=== PATIENT | female | born 1990 | race Caucasian/White ===

== ENCOUNTER → 2022-05-17 14:21 | Outpatient (BNVA) | payer MEDICAID, SELFPAY | PROVIDERS: Visit Provider Nurse Practitioner Family | DX: Z34.90 Encounter for supervision of normal pregnancy, unspecified, unspecified trimester (principal) | CPT/HCPCS: 81025 ==

== ENCOUNTER 2022-05-28 10:46 | Emergency (ER) | payer MEDICAID, SELFPAY ==
[2022-05-28 11:09] VITALS: BP 130/95; PULSE 78; RESP 16; TEMP 36.7; O2SAT 98; BMI 34.3
--- NOTE | 2022-05-28 14:07 | US_ITS ---
WS: [id number] EARLY OBSTETRICAL ULTRASOUND (<14 WEEKS). HISTORY: vag bleeding COMPARISON: None available. Single intrauterine gestational sac is identified. Cardiac activity at 126 BPM. [place]-rump length luis sures 0.9 cm which corresponds to a gestation of 6w6d. Normal-appearing yolk sac and amnion demonstra laura. Moderate subchorionic hemorrhage. Mixed echogenicity subchorionic hemorrhage measures 3.4 x 2.3 x 0.7 cm. Hemorrhage is along the posterior and RIGHT lateral gestational sac. No free fluid. Both ovaries are identified with normal vascularity. Corpus luteal cyst associated with the RIGHT ova ry measures 2.2 x 1.8 x 1.6 cm. US/US OB <=14 wk fetus w transvag IMPRESSION: 1. Single intrauterine gestation of 6 weeks 6 days with an EDC of 01/15/2023. 2. Normal cardiac activity. 3. Moderate-sized subchorionic hemorrhage measures 3.4 x 2.3 x 0.7 cm.
--- NOTE | 2022-05-28 14:19 | W.ED.GENADLT ---
HPI - General Adult General: Chief complaint: Vaginal Bleeding Stated complaint: Bleeding, Time Seen by Provider: 05/28/22 13:59 History of Present Illness: Patient is a 31-year-old female G3, P2 at 8 weeks by LMP presenting to the emergency room for vaginal bleeding for the last 5 days. Patient tells me that on she began having vaginal spotting. However however since Saturday or today, patient has had heavy vaginal bleeding. Patient denies any dysuria, hematuria or polyuria. Patient denies any new vaginal discharge. Patient has no complaints of diarrhea melena hematochezia, chest pain shortness breath palpitation or lightheadedness, fever or chills, cough, runny nose or sore throat. Patient reports mild lower abdominal pain with cramps. Patient denies any pelvic contractions. Onset: 5 days ago Duration:5 days Location:home Severity:moderate Associated symptoms: Deny chest pain, dyspnea, nausea, rash, palpitations or vomiting Review of Systems Const: Denies: fever(s) or chills Eyes: Denies: change in vision ENMT: Denies: mouth pain Card: Denies: chest pain or palpitations Resp: Denies: dyspnea or non-productive cough GI: Reports: abdominal pain (+lower abd pain/cramps); Denies: nausea, vomiting or diarrhea : Reports: other (+vaginal bleeding/spotting, +pelvic cramps); Denies: dysuria Musc: Denies: extremity pain Skin/Breast: Denies: rash or new lesions Neuro: Denies: weakness in extremities Psych: Reports: other (Normal mood) [place]/Lymph: Denies: easy bruising [facility] ED PFSH: Medical History Family History Mother Stroke Cancer Grandmother Hypertension Hyperlipidemia Social History Smoking and tobacco status: never smoked Alcohol intake: never Adopted: No Caregiver/support person: No Lives independently: No Household members: spouse and children Marital status: service: No Current occupational status: unemployed Sexually active: Yes Current gender identity: Female Physical Exam Const: COMMON NORMALS: alert HENMT: COMMON NORMALS: atraumatic HEAD & SCALP: atraumatic MOUTH: moist mucous membranes not abnormal Eye: COMMON NORMALS: EOMs intact bilaterally and conjunctivae normal CONJUNCTIVA: Yes conjunctivae normal Neck/C-Spine: COMMON NORMALS: full ROM and supple Resp: COMMON NORMALS: normal respiratory effort and clear to auscultation bilaterally AUSCULTATION: clear to auscultation bilaterally Cardio: COMMON NORMALS: regular rate RATE: regular rate GI: COMMON NORMALS: Soft to palpation and non-tender PALPATION: Yes Soft to palpation OTHER: No focal TTP. NO guarding rebound, guarding, rigidity. No CVA tenderness to percussion. Neg Alanis/Neg McBurney's point tenderness, no suprabupic tenderness to palpation. : OTHER: Exam supervised by Kati Cardona, External genitalia wnl. No erythema around cervical os, os closed, +mild vaginal discharge, no bleeding. Extremity: COMMON NORMALS: full ROM Neuro: SENSORIUM/ORIENTATION: Yes alert MOTOR EXAM: No Abnormal motor strength present and Other motor observations present (no focal motor deficits) Psych: COMMON NORMALS: speech normal SPEECH: Yes normal speech MOOD & AFFECT: Yes euthymic mood Course Vital Signs: Vital signs: Vital Signs Temperature 98.1 F 05/28/22 11:09 Pulse Rate 78 05/28/22 11:09 Respiratory Rate 16 05/28/22 11:09 Blood Pressure 130/95 05/28/22 11:09 Pulse Oximetry 98 05/28/22 11:09 MDM - General Adult Medical Decision Making 31-year-old female G3, P2 at 8 weeks by LMP presenting to the emergency room for complaints of vaginal bleeding pelvic cramps. On physical exam, patient has no focal abd tenderness palpation. Pelvic exam showed mild physiologica discharge without anyl bleeding. US confirms IUP at 6 weeks and 6 days patient is noted to moderate-sized subchorionic bleed. Hemoglobin 14.2. Do not suspect acute and active vaginal bleeding/hemorrhage. I have given patient follow up with our onsite case manager to be seen by our outpatient OB for threatened miscarriage and vaginal bleeding. Patient aware of a call from our onsite case manager to schedule for appointment(s) and verbalizes understanding of the importance of following up. Rx tylenol PRN pain Disposition: Discharge. Patient counseled regarding diagnostic impression, treatment plan. Patient given ED strict return precautions to return for continuation, worsening, or development of new symptoms. Instructed to f/u w/ PCP regarding symptoms today. Patient verbalized understanding. Lab Data : 05/28/22 14:25 05/28/22 14:25 Radiology Impressions Obstetrics Ultrasound 05/28/22 14:07 IMPRESSION: 1. Single intrauterine gestation of 6 weeks 6 days with an EDC of 01/15/2023. 2. Normal cardiac activity. 3. Moderate-sized subchorionic hemorrhage measures 3.4 x 2.3 x 0.7 cm. Laboratory Results WBC 8.8 10^3/uL (4.0-10.0) 05/28/22 14:25 RBC 4.77 10^6/uL (4.1-5.3) 05/28/22 14:25 Hgb 14.2 g/dL (11.5-15.3) 05/28/22 14:25 Hct 42.8 % (37.0-47.0) 05/28/22 14:25 MCV 89.7 fl (81-99) 05/28/22 14:25 MCH 29.8 pg (28.0-34.0) 05/28/22 14:25 MCHC 33.2 g/dL (30.0-36.0) 05/28/22 14:25 RDW 12.8 % (12.1-15.1) 05/28/22 14:25 Plt Count 256 10^3/cmm (130-400) 05/28/22 14:25 MPV 10.2 fL (7.4-10.4) 05/28/22 14:25 Neut % (Auto) 72.9 % 05/28/22 14:25 Lymph % (Auto) 21.8 % 05/28/22 14:25 [place] % (Auto) 4.8 % 05/28/22 14:25 Eos % (Auto) 0.2 % 05/28/22 14:25 Baso % (Auto) 0.1 % 05/28/22 14:25 Neut # (Auto) 6.37 10^3/uL (1.8-7.7) 05/28/22 14:25 Lymph # (Auto) 1.9 10^3/uL (0.8-4.8) 05/28/22 14:25 [place] # (Auto) 0.4 10^3/uL (0.2-0.9) 05/28/22 14:25 Eos # (Auto) 0.0 10^3/uL (0.0-0.8) 05/28/22 14:25 Baso # (Auto) 0.0 10^3/uL (0.0-0.1) 05/28/22 14:25 Nucleated RBC % (auto) 0 % 05/28/22 14:25 Nucleated RBCs # 0.0 /100WBC 05/28/22 14:25 Blood Type A Positive 05/28/22 14:25 Rho(D) Type Positive 05/28/22 14:25 Imaging Data Other Imaging: Radiologist's impression: [employer] [id number] Ultrasound Report Signed Patient: Antonietta Shaw Unit #: [id number] : 1990 Age/Sex: 31 / F ADM Date: 05/28/22 Loc: ER Room/Bed: Attending Dr: Ordering Provider/Ordering MD: Katherine Kamara MD Date of Service: 05/28/22 Procedure(s): US OB <=14 wk fetus w transvag Accession Number(s): [id number] Report Number: [id number] WS: [id number] ?EARLY OBSTETRICAL ULTRASOUND (<14 WEEKS). HISTORY: vag bleeding COMPARISON: None available. Single intrauterine gestational sac is identified. Cardiac activity at 126 BPM. [place]-rump length measures 0.9 cm which corresponds to a gestation of 6w6d. Normal-appearing yolk sac and amnion demonstrated.? Moderate subchorionic hemorrhage. Mixed echogenicity subchorionic hemorrhage measures 3.4 x 2.3 x 0.7 cm. Hemorrhage is along the posterior and RIGHT lateral gestational sac. No free fluid. Both ovaries are identified with normal vascularity. Corpus luteal cyst associated with the RIGHT ovary measures 2.2 x 1.8 x 1.6 cm. US/US OB <=14 wk fetus w transvag IMPRESSION: ? 1.? Single intrauterine gestation of 6 weeks 6 days with an EDC of 01/15/2023. 2.? Normal cardiac activity. 3.? Moderate-sized subchorionic hemorrhage measures 3.4 x 2.3 x 0.7 cm. ? Dictated By: Karlene Newby DO Signed By: Karlene Newby DO Signed Date/Time: 05/28/22 151 DD/ 1503 Discharge Plan Discharge Condition: Stable Prescriptions: No Action Classic 28 mg iron- 800 mcg tablet 1 tab PO DAILY 90 Days Qty: 90 2RF Coding Level of Care Code ED Motion Study Engineer for Johng Fwd Exam Comprehensive
[2022-05-28 14:42] LABS: Basophils % 0.1 %; Eosinophils % 0.2 %; Hematocrit 42.8 % (37.0-47.0); Hemoglobin 14.2 g/dL (11.5-15.3); Lymphocytes # 1.9 10^3/uL (0.8-4.8); Lymphocytes % 21.8 %; Mean Corpuscular HGB Conc 33.2 g/dL (30.0-36.0); Mean Corpuscular Hemoglobin 29.8 pg (28.0-34.0); Mean Corpuscular Volume 89.7 fl (81-99); Mean Platelet Volume 10.2 fL (7.4-10.4); Monocytes # 0.4 10^3/uL (0.2-0.9); Monocytes % 4.8 %; Neutrophils # 6.37 10^3/uL (1.8-7.7); Neutrophils % 72.9 %; Nucleated Red Blood Cells % 0 %; Platelet Count 256 10^3/cmm (130-400); Red Blood Count 4.77 10^6/uL (4.1-5.3); Red Cell Distribution Width 12.8 % (12.1-15.1); White Blood Count 8.8 10^3/uL (4.0-10.0)
[2022-05-28 15:57] LABS: Alanine Aminotransferase < 5 U/L (0-33); Albumin Level 4.8 g/dL (3.5-5.2); Alkaline Phosphatase 60 IU/L (35-105); Blood Urea Nitrogen 15 mg/dL (6-20); Calcium 10.2 mg/dL (8.5-10.5); Carbon Dioxide 24 mmol/L (22-29); Chloride 97 mmol/L (98-107); Creatinine Clr Calc Pharmacy 152.4422; Globulin 3.3 g/dL (1.3-4.6); Glomerular Filtration Rate 143.9 mL/min (90-130); Glucose 74 mg/dL (65-115); Osmolality Calculated 277 mOsm/kg (285-295); Sodium 134 mmol/L (136-145); Total Bilirubin 0.2 mg/dL (0.15-1.2); Total Protein 8.1 g/dL (6.6-8.7)
[2022-05-28 15:59] LABS: Anion Gap 16.8 (5-19); Aspartate Amino Transferase 15 U/L (0-32); Potassium 3.8 mmol/L (3.5-5.1)
[2022-05-28 16:00] VITALS: BP 106/62; PULSE 84; RESP 15; O2SAT 98
[2022-05-28 16:19] LABS: Add Urine Microscopic? NO; Charge for UA Resulting for Rev
[2022-05-28 16:30] VITALS: BP 118/61; PULSE 82; RESP 14; O2SAT 97
[2022-05-28] MEDS: acetaminophen 500 mg Tablet PO (16:42)
[2022-05-28 16:44] LABS: Urine Appearance Clear (CLEAR); Urine Color Yellow (Yellow); pH Urine 5 (5-7)
[2022-05-28 16:45] LABS: Bilirubin Urine Neg (Negative); Blood Urine Neg (Negative); Glucose Urine UA Norm (Normal); Ketones Urine 2+ (Negative); Leukocyte Esterase Urine Negative (Negative); Nitrate Urine Negative (Negative); Protein Urine Neg (Negative); Specific Gravity, Urine 1.025 (1.005-1.030); Urobilinogen Urine Norm (Negative)
--- NOTE | 2022-05-29 07:42 | DCPLANNER ---
Addendum entered by Gwen Henriquez 06/26/22 12:40: Patient had a follow up appointment scheduled for 06.12.22 with [facility] - patient did attend appointment. Addendum entered by Gwen Henriquez 05/30/22 14:06: Patient has a follow up appointment scheduled for Sunday, June 12, 2022 at 4:00 with [facility] Clinic will call patient with appointment information. Original Note: forest manager had message to schedule a follow up appointment for patient with [facility]. forest manager sent patients information to the front office staff at [facility] Patients information will be printed and reviewed. Clinic will call patient with appointment information.
== END 2022-05-28 16:54 | disposition home or self-care (01) ==
PROVIDERS: Physician Assistant; Emergency Provider Emergency Medicine
DX: O20.9 Hemorrhage in early pregnancy, unspecified (principal); Z3A.01 Less than 8 weeks gestation of pregnancy
CPT/HCPCS: 76801; 76817; 80053; 81003; 84702; 85025; 86900; 99284

== ENCOUNTER → 2022-06-12 14:30 | Outpatient (BNVA) | payer MEDICAID, SELFPAY | PROVIDERS: Visit Provider Obstetrics & Gynecology | DX: Z36.87 Encounter for antenatal screening for uncertain dates (principal) | CPT/HCPCS: 76801; 76817 ==

== ENCOUNTER → 2022-06-26 13:00 | Outpatient (BNVA) | payer MEDICAID, SELFPAY | PROVIDERS: Visit Provider Obstetrics & Gynecology | DX: Z34.81 Encounter for supervision of other normal pregnancy, first trimester (principal) | CPT/HCPCS: 80307; 84315; 85027; 86592; 86762; 86803; 86850; 86900; 87086; 87340; 87491; 87591; 87624; 87806 ==

== ENCOUNTER → 2022-07-31 12:05 | Outpatient (BNVA) | payer MEDICAID, SELFPAY | PROVIDERS: Visit Provider Obstetrics & Gynecology | DX: O09.92 Supervision of high risk pregnancy, unspecified, second trimester (principal); Z3A.16 16 weeks gestation of pregnancy | CPT/HCPCS: 76815; 84315 ==

== ENCOUNTER → 2022-08-28 14:38 | Outpatient (BNVA) | payer MEDICAID, SELFPAY | PROVIDERS: Visit Provider Obstetrics & Gynecology | DX: Z36.87 Encounter for antenatal screening for uncertain dates (principal) | CPT/HCPCS: 76805 ==

== ENCOUNTER → 2022-09-12 16:00 | Outpatient (BNVA) | payer MEDICAID, SELFPAY | PROVIDERS: Visit Provider Obstetrics & Gynecology | DX: N39.0 Urinary tract infection, site not specified (principal) | CPT/HCPCS: 87086 ==

== ENCOUNTER → 2022-10-16 11:38 | Outpatient (BNVA) | payer MEDICAID, SELFPAY | PROVIDERS: Visit Provider Obstetrics & Gynecology | DX: O09.90 Supervision of high risk pregnancy, unspecified, unspecified trimester (principal); Z3A.00 Weeks of gestation of pregnancy not specified | CPT/HCPCS: 81000; 82950; 85027 ==

== ENCOUNTER → 2022-10-23 08:04 | Outpatient (BNVA) | payer MEDICAID, SELFPAY | PROVIDERS: Visit Provider Obstetrics & Gynecology | DX: O09.90 Supervision of high risk pregnancy, unspecified, unspecified trimester (principal); Z3A.00 Weeks of gestation of pregnancy not specified | CPT/HCPCS: 84315; 87086 ==

== ENCOUNTER 2022-11-13 09:30 | Outpatient (CLI) | payer MEDICAID, SELFPAY ==
[2022-11-13 09:38] VITALS: RESP 17
--- NOTE | 2022-11-13 09:38 | US_ITS ---
WS: [id number] LIMITED OBSTETRICAL ULTRASOUND HISTORY: growth ultrasound COMPARISON: 05/28/2022, 08/28/2022 Presentation: Cephalic. Cervix: Closed and normal length. Placenta: Anterior, no previa or abruption. Grade: 1 HEART: FHR of 150 BPM. measurements: BPD = 7.9 cm = 31w4d; 58th percentile. HC = 29.2 cm = 32w2d; 47th percentile. AC = 27.3 cm = 31w2d; 57th percentile. FL = 5.8 cm = 30w1d; 15th percentile. MORIS: 12.8 cm EFW: 1692 g; 56 %. AGA by ultrasound: 31w2d BEN by ultrasound: 01/13/2023 Measurements are internally concordant. Appropriate growth of the fetus since the first trimester ult rasound. Abdominal circumference and head measurements do not demonstrate growth restriction. US/US OB limited [id number] IMPRESSION: 1. Single intrauterine gestation of 31 weeks 2 days with an EDC of 01/13/2023. 2. No growth restriction demonstrated. 3. Normal amniotic fluid. 4. Estimated weight at the 56th percentile for age.
[2022-11-13 09:43] VITALS: BMI 38.3
[2022-11-13 10:26] VITALS: BP 123/73; PULSE 85; TEMP 35.8; TEMP 36
[2022-11-13 10:30] VITALS: BP 123/73; PULSE 85; TEMP 35.8
== END 2022-11-13 10:30 | disposition home or self-care (01) ==
LOC: OPOB 09:34 → OBGYN 09:36
PROVIDERS: Visit Provider Obstetrics & Gynecology
DX: O26.843 Uterine size-date discrepancy, third trimester (principal); Z3A.31 31 weeks gestation of pregnancy
CPT/HCPCS: 76815; 84315; 99211

== ENCOUNTER 2022-11-20 12:15 | Outpatient (CLI) | payer MEDICAID, SELFPAY ==
[2022-11-20] VITALS (7 sets, daily range): BP systolic 107–117; BP diastolic 56–76; PULSE 80–90; BMI 38.9
[2022-11-20 13:05] LABS: Basophils % 0.1 %; Eosinophils % 0.1 %; Hematocrit 34.2 % (37.0-47.0); Hemoglobin 11.1 g/dL (11.5-15.3); Lymphocytes # 1.4 10^3/uL (0.8-4.8); Lymphocytes % 18.1 %; Mean Corpuscular HGB Conc 32.5 g/dL (30.0-36.0); Mean Corpuscular Hemoglobin 28.5 pg (28.0-34.0); Mean Corpuscular Volume 87.9 fl (81-99); Mean Platelet Volume 10.8 fL (7.4-10.4); Monocytes # 0.6 10^3/uL (0.2-0.9); Monocytes % 7.2 %; Neutrophils # 5.69 10^3/uL (1.8-7.7); Neutrophils % 74.1 %; Nucleated Red Blood Cells % 0 %; Platelet Count 211 10^3/cmm (130-400); Red Blood Count 3.89 10^6/uL (4.1-5.3); Red Cell Distribution Width 13.5 % (12.1-15.1); White Blood Count 7.7 10^3/uL (4.0-10.0)
[2022-11-20 13:20] LABS: Alanine Aminotransferase < 5 U/L (0-33); Albumin Level 3.6 g/dL (3.5-5.2); Alkaline Phosphatase 95 U/L (35-105); Aspartate Amino Transferase 12 U/L (0-32); Blood Urea Nitrogen 9 mg/dL (6-20); Calcium 8.8 mg/dL (8.5-10.5); Carbon Dioxide 24 mmol/L (22-29); Chloride 100 mmol/L (98-107); Globulin 2.8 g/dL (1.3-4.6); Glucose 89 mg/dL (65-115); Osmolality Calculated 276 mOsm/kg (285-295); Sodium 134 mmol/L (136-145); Total Bilirubin 0.2 mg/dL (0.15-1.2); Total Protein 6.4 g/dL (6.6-8.7); Uric Acid 4.8 mg/dL (2.4-5.7)
[2022-11-20 13:25] LABS: Specific Gravity, Urine 1.015 (1.005-1.030); Urine Appearance Cloudy (CLEAR); Urine Color Yellow (Yellow); pH Urine 7 (5-7)
[2022-11-20 13:26] LABS: Add Urine Culture? Yes; Bacteria Urine 4+ /hpf; Bilirubin Urine Neg (Negative); Blood Urine Neg (Negative); Glucose Urine UA Norm (Normal); Ketones Urine Negative (Negative); Leukocyte Esterase Urine 2+ (Negative); Nitrate Urine Negative (Negative); Protein Urine Trace (Negative); Urobilinogen Urine 4 mg/dL (Negative)
[2022-11-20 13:34] LABS: Urine Creatinine 185 mg/dL (28-217)
[2022-11-20 13:36] LABS: UPRO/UCREAT Ratio 0.15 mg/mg CR; Urine Protein Random 28 mg/dL
--- NOTE | 2022-11-26 10:25 | PC.NURSE ---
11/26/22 1025 [address]ENCE MANAGER [address]ED DR. MOYA WITH 24 HOUR URINE PROTEIN LEVEL OF 148.2. NO NEW ORDERS AT THIS TIME.
== END 2022-11-20 14:00 | disposition home or self-care (01) ==
LOC: OPOB 12:23 → OBGYN 12:24
PROVIDERS: Visit Provider Obstetrics & Gynecology
DX: O26.899 Other specified pregnancy related conditions, unspecified trimester (principal); Z3A.00 Weeks of gestation of pregnancy not specified
CPT/HCPCS: 36415; 59025; 80053; 81001; 82570; 84156; 84315; 84550; 85025; 87086; 99211

== ENCOUNTER 2022-11-26 06:00 | Outpatient (CLI) | payer MEDICAID, SELFPAY ==
[2022-11-26 09:21] LABS: Total Volume, Urine 600 mL
[2022-11-26 09:42] LABS: Urine Total Protein 24.7 mg/dL (0-150); Urine Total Protein 24 Hour 148.2 mg/24hr (0-150)
== END 2022-11-26 06:01 | disposition home or self-care (01) ==
LOC: LAB 12-05 11:15
PROVIDERS: Visit Provider Obstetrics & Gynecology
DX: Z01.89 Encounter for other specified special examinations (principal)
CPT/HCPCS: 84156

== ENCOUNTER 2022-12-11 14:23 | Observation (INO) | payer MEDICAID, SELFPAY ==
[2022-12-11] VITALS (29 sets, daily range): BP systolic 131–227; BP diastolic 69–108; PULSE 67–97; RESP 15; TEMP 37; BMI 38.9
[2022-12-11 10:50] LABS: Basophils % 0.2 %; Eosinophils % 0.2 %; Hematocrit 32.9 % (37.0-47.0); Hemoglobin 10.4 g/dL (11.5-15.3); Lymphocytes % 15.7 %; Mean Corpuscular HGB Conc 31.6 g/dL (30.0-36.0); Mean Corpuscular Hemoglobin 26.9 pg (28.0-34.0); Mean Corpuscular Volume 85.2 fl (81-99); Monocytes # 0.4 10^3/uL (0.2-0.9); Monocytes % 6.7 %; Neutrophils # 5.02 10^3/uL (1.8-7.7); Neutrophils % 76.4 %; Nucleated Red Blood Cells % 0 %; Platelet Count 154 10^3/cmm (130-400); Red Blood Count 3.86 10^6/uL (4.1-5.3); Red Cell Distribution Width 13.2 % (12.1-15.1); White Blood Count 6.6 10^3/uL (4.0-10.0)
[2022-12-11 11:10] LABS: Alanine Aminotransferase < 5 U/L (0-33); Albumin Level 3.5 g/dL (3.5-5.2); Alkaline Phosphatase 116 U/L (35-105); Anion Gap 15.1 (5-19); Aspartate Amino Transferase 13 U/L (0-32); Blood Urea Nitrogen 8 mg/dL (6-20); Calcium 8.7 mg/dL (8.5-10.5); Carbon Dioxide 23 mmol/L (22-29); Chloride 101 mmol/L (98-107); Globulin 2.6 g/dL (1.3-4.6); Glucose 66 mg/dL (65-115); Osmolality Calculated 277 mOsm/kg (285-295); Potassium 4.1 mmol/L (3.5-5.1); Sodium 135 mmol/L (136-145); Total Bilirubin 0.2 mg/dL (0.15-1.2); Total Protein 6.1 g/dL (6.6-8.7)
[2022-12-11 11:13] LABS: Urine Creatinine 204 mg/dL (28-217)
[2022-12-11 11:16] LABS: Bacteria Urine 1+ /hpf; Bilirubin Urine 1+ (Negative); Blood Urine Neg (Negative); Glucose Urine UA Norm (Normal); Ketones Urine 1+ (Negative); Leukocyte Esterase Urine Negative (Negative); Nitrate Urine Negative (Negative); Protein Urine 2+ (Negative); RBC Urine RARE /hpf (0-2); Squamous Epithelial Cell Urine 15-25 /hpf (0-5); Urine Appearance Hazy (CLEAR); Urine Color Yellow (Yellow); Urobilinogen Urine 1 mg/dL (Negative); WBC Urine 0-4 /hpf (0-5); pH Urine 5 (5-7)
[2022-12-11 11:17] LABS: Add Urine Culture? No; Amorphous Sediment Urine 1+ /hpf; Mucus Urine 2+ /hpf
[2022-12-11 11:26] LABS: UPRO/UCREAT Ratio 1.05 mg/mg CR; Urine Protein Random 214 mg/dL
[2022-12-11] MEDS: betamethasone susp 6 mg/mL 5 mL 12 MG IM (11:55)
--- NOTE | 2022-12-11 12:17 | US_ITS ---
WS: [id number] BIOPHYSICAL PROFILE AMNIOTIC FLUID HISTORY: PRE E/ Protein/Creatinine ratio elevated COMPARISON: 11/13/2022 position: Vertex. Cardiac activity: 147 bpm. Cervix: Obscured by the head deep within the pelvis. Parameters are as follows: Breathin Movement: 2 Tone: 2 Fluid volume: 2 Amniotic Fluid Index: 9.0 cm; single deep vertical pocket 3.7 cm. US/US OB BPP wo NST [id number] IMPRESSION: 1. Biophysical profile score: 6/8. breathing was not identified on this e xam. 2. Normal amniotic fluid.
--- NOTE | 2022-12-11 13:24 | US_ITS ---
WS: [id number] LIMITED OBSTETRICAL ULTRASOUND HISTORY: EFW COMPARISON: 05/28/2022, 08/28/2022 Presentation: Vertex. Cervix: Not imaged. Placenta: Anterior Grade: 2 Heart rate was not documented on this exam. Heart rate was documented on a prior examination done the same day. measurements: BPD = 8.9 cm = 36w0d; 80th %. HC = 32.1 cm = 36w1d; 46 %. AC = 31.0 cm = 34w6d; 54th %. FL = 6.9 cm = 35w2d; 49th %. MORIS: 9.2 cm; single largest vertical pocket 3.9 cm. EFW: 2627 g; 66th percentile. AGA by ultrasound: 35w4d BEN by ultrasound: 01/11/2023 US/US OB limited [id number] IMPRESSION: 1. Single intrauterine gestation of 35 weeks 4 days with an EDC of 01/11/2023. Appropriate growth since the first trimester ultrasound. 2. Estimated weight at the 66th percentile for age. 3. No growth asymmetry. 4. Normal amniotic fluid.
--- NOTE | 2022-12-11 18:02 | PM.OPHPUD ---
Labor & Delivery H&P Update Date of Procedure: December 11, 2022 Date H&P Performed: 12/11/22 H&P update information: I have reviewed H&P completed within last 30 days, I have examined patient prior to procedure and No changes to prior documentation Admission Diagnosis:
--- NOTE | 2022-12-11 18:03 | PM.PN ---
Subjective Subjective: Mrs. Shaw 32-year-old female with an 8 presentation age of 35 weeks with preeclampsia Vitals/I&O/Wt Last Vital Signs Temp 98.6 F 12/11/22 10:53 Pulse 86 12/11/22 17:44 Resp 15 12/11/22 10:53 BP 140/73 12/11/22 17:44 Weight last 48 hrs Weight 93.44 kg Physical Exam Narrative: GA: Alert and oriented ?3. Lungs: Clear to auscultation bilaterally. Heart: Regular rhythm and rate. Abdomen: Gravid, full the height equals dates, nontender. HAND SCRAPER: SVE; dilation: 0 cm, effacement: 0%, station: -5, presentation: cephalic, membranes: IM. Extremities: no edema, no cyanosis, no calves pain. heart tracing: Basal rate: 140's bpm, Variability: moderate, Accelerations: present, Decelerations: absent, Contraction: none. Data 12/11/22 10:36 12/11/22 10:36 A&P Assessment and plan (1) Pre-eclampsia during in third trimester, antepartum: IUP at 35 weeks. Preeclampsia work-up ordered. Corticosteroid for lung maturation ordered. 24-hour urine collection for protein ordered. Continuous monitoring. Antihypertensive therapy per protocol. Plan Admitted for 24-hour urine collection for protein. Repeat preeclampsia work-up tomorrrow. monitoring. Biophysical profile. Attestations Medical Necessity Statement*: In my professional opinion per admitting diagnosis. Coding Level of Care Code Acute Code for [facility] Diagnoses Pre-eclampsia during in third trimester, antepartum O14.93
[2022-12-11] MEDS: acetaminophen 500 mg Tablet 1000 MG PO (19:21)
[2022-12-12] VITALS (19 sets, daily range): BP systolic 137–165; BP diastolic 71–96; PULSE 82–98; RESP 18; O2SAT 96–97
[2022-12-12 10:08] LABS: Basophils % 0.1 %; Hematocrit 34.8 % (37.0-47.0); Lymphocytes # 1.1 10^3/uL (0.8-4.8); Lymphocytes % 10.4 %; Mean Corpuscular HGB Conc 31.6 g/dL (30.0-36.0); Mean Corpuscular Hemoglobin 27.4 pg (28.0-34.0); Mean Corpuscular Volume 86.6 fl (81-99); Mean Platelet Volume 12.2 fL (7.4-10.4); Monocytes # 0.4 10^3/uL (0.2-0.9); Neutrophils # 8.53 10^3/uL (1.8-7.7); Neutrophils % 82.6 %; Nucleated Red Blood Cells % 0.2 %; Platelet Count 189 10^3/cmm (130-400); Red Blood Count 4.02 10^6/uL (4.1-5.3); Red Cell Distribution Width 13.1 % (12.1-15.1); White Blood Count 10.3 10^3/uL (4.0-10.0)
[2022-12-12 10:32] LABS: Alanine Aminotransferase < 5 U/L (0-33); Albumin Level 3.6 g/dL (3.5-5.2); Alkaline Phosphatase 129 U/L (35-105); Anion Gap 16.8 (5-19); Aspartate Amino Transferase 14 U/L (0-32); Blood Urea Nitrogen 10 mg/dL (6-20); Calcium 9.1 mg/dL (8.5-10.5); Carbon Dioxide 22 mmol/L (22-29); Chloride 101 mmol/L (98-107); Globulin 2.8 g/dL (1.3-4.6); Glucose 125 mg/dL (65-115); Osmolality Calculated 283 mOsm/kg (285-295); Potassium 3.8 mmol/L (3.5-5.1); Sodium 136 mmol/L (136-145); Total Bilirubin 0.2 mg/dL (0.15-1.2); Total Protein 6.4 g/dL (6.6-8.7); Uric Acid 6.7 mg/dL (2.4-5.7)
[2022-12-12] MEDS: betamethasone susp 6 mg/mL 5 mL 12 MG IM (11:42)
[2022-12-12] MEDS: acetaminophen 500 mg Tablet 1000 MG PO (14:53)
[2022-12-12 18:53] LABS: Total Volume, Urine 950 mL
[2022-12-12 19:13] LABS: Urine Total Protein 24 Hour 1035.5 mg/24hr (0-150)
--- NOTE | 2022-12-12 19:28 | P.PN_ITS ---
Subjective Subjective: Ms. Shaw is a 32 year old established patient with an unknown LMP , BEN 01/15/2023 based in first trimester ultrasound, placing her at 35 1/7weeks today. Vitals/I&O/Wt Last Vital Signs Temp 98.6 F 12/11/22 10:53 Pulse 87 12/12/22 17:21 Resp 18 12/12/22 09:12 BP 154/85 12/12/22 17:21 Weight last 48 hrs Weight 93.44 kg Physical Exam Narrative: GA: Alert and oriented ?3. Lungs: Clear to auscultation bilaterally. Heart: Regular rhythm and rate. Abdomen: Gravid, full the height equals dates, nontender. TRAY FILLER: SVE; dilation: 0 cm, effacement: 0%, station: -5, presentation: cephalic, membranes: IM. Extremities: no edema, no cyanosis, no calves pain. heart tracing: Basal rate: 150's bpm, Variability: moderate, Accelerations : present, Decelerations: absent, Contraction: none. Data 12/12/22 09:50 12/12/22 09:50 Other Labs: Laboratory Tests 12/12/22 12/12/22 12/12/22 09:50 09:50 18:04 WBC 10.3 H RBC 4.02 L Hgb 11.0 L Hct 34.8 L MCV 86.6 MCH 27.4 L MCHC 31.6 RDW 13.1 Plt Count 189 MPV 12.2 H Sodium 136 Potassium 3.8 Chloride 101 Carbon Dioxide 22 Anion Gap 16.8 BUN 10 Creatinine 0.4 L GFR Calculation 185.0 H Glucose 125 H Calculated Osmolality 283 L Uric Acid 6.7 H Calcium 9.1 Total Bilirubin 0.2 AST 14 ALT < 5 Alkaline Phosphatase 129 H Total Protein 6.4 L Albumin 3.6 Globulin 2.8 Ur Total Protein 24 Hr 1035.5 H Urine Total Protein 109.0 A&P Assessment and plan (1) Pre-eclampsia during in third trimester, antepartum: Mrs. Shaw 32-year-old female G3, P2 with an estimated gestational age at 35 weeks +1-day with severe preeclampsia, 24-hour urine protein at 1035 mg/24. The patietn and her were counseled regarding the diagnosis of severe preeclampsia and the recommendation for transfer to higher echelon of care due to gestational age. The patient and referred she first to go to [facility]. [facility] was contacted and Dr. Gillette accepted her. She has been treated with antihypertensive therapy, was given corticosteroids for lung maturation and magnesium sulfate IV for seizure prophylaxis. Attestations Medical Necessity Statement*: My professional opinion per admitting diagnosis Coding Level of Care Code Acute Code for [facility] Diagnoses Pre-eclampsia during in third trimester, antepartum O14.93
[2022-12-12] MEDS: magnesium sulfate premix 20 GM/500 ML BAG IV (19:38)
[2022-12-12] MEDS: dextrose 5%-lactated ringers 1,000 ML 125 ML IV (19:38)
[2022-12-12] MEDS: magnesium sulfate premix 4 GM/100 ML PREMIX IV (19:39)
--- NOTE | 2022-12-12 20:41 | PC.NURSE ---
[facility] ambulance personnel here at 2019 and resumed care of the pt.
== END 2022-12-12 20:30 | disposition intermediate care facility (04) ==
LOC: OPOB 12-12 10:06 → OBGYN 12-12 10:06
PROVIDERS: Admitting Provider Obstetrics & Gynecology; Visit Provider Obstetrics & Gynecology
DX: O14.93 Unspecified pre-eclampsia, third trimester (principal); Z3A.35 35 weeks gestation of pregnancy
CPT/HCPCS: 36415; 51702; 76815; 76819; 80053; 81001; 82570; 84156; 84315; 84550; 85025; 96372; G0378; J0702; J3475; J7121

== ENCOUNTER → 2024-06-05 16:31 | Outpatient (BNVA) | payer MEDICAID, SELFPAY | PROVIDERS: PCP Registered Nurse; Visit Provider Registered Nurse Neonatal Intensive Care | DX: J02.9 Acute pharyngitis, unspecified (principal) | CPT/HCPCS: 87880 ==

== ENCOUNTER → 2024-10-16 08:23 | Outpatient (BNVA) | payer MEDICAID, SELFPAY | PROVIDERS: PCP Registered Nurse; Visit Provider Emergency Medicine | DX: J02.9 Acute pharyngitis, unspecified (principal) | CPT/HCPCS: 87071; 87880 ==